=== PATIENT | male | born 1960 | race Caucasian/White ===

== ENCOUNTER 2020-03-20 04:25 | Emergency (ER) | payer MEDICARE, OTHER ==
[~2020-03-20] VITALS: Ht 172.7 cm; Wt 90.0 kg
--- OUTSIDE RECORDS SUMMARY | 2020-03-20 04:33 | XMS REPORT | Continuity of Care Document ---
Author Organization Unknown Address Unknown Phone Unavailable Allergies There is no data. Medications There is no data. Problems There is no data. Procedures There is no data. Results There is no data. Encounters ACCT No. Visit Date/Time Discharge Status Pt. Type Provider Facility Loc./Unit Complaint [id number] 03/20/2020 04:30:[address] Emergency REHAN BLANCO, FANI Yao [facility] FS CANCER LEFT EAR
--- NOTE | 2020-03-20 04:42 | ED EENT ---
History of Present Illness General Chief Complaint: Ear Problems Stated Complaint: CANCER LEFT EAR Source: patient, RN/MD, RN notes reviewed, old records Exam Limitations: no limitations History of Present Illness Date Seen by Provider: March 20, 2020 Time Seen by Provider: 04:30 Initial Comments This patient is a 59-year-old male with presents to the emergency department for left ear pain. Patient is a history of cancer in the left ear and is undergoing radiation therapy. Patient has a red swollen care that is oozing. Patient states has been doing this for some time since he started the radiation therapy. Underlying tissue appears to be concerning for possible cellulitis. Patient takes hydrocodone at home states increased pain and swelling. Last radiation treatment was just this day before today. We'll do medical evaluation treatment is needed Timing/Duration: gradual Location: ear (L) Associated Symptoms: ear drainage, facial pain/swelling Allergies and Home Medications Allergies Coded Allergies: No Known Drug Allergies (Unverified , 03/20/20) Patient Home Medication List Home Medication List Reviewed: Yes Review of Systems Review of Systems Constitutional: No no symptoms reported; see HPI; No chills, No diaphoresis, No dizziness, No fever, No malaise, No weakness, No weight gain, No weight loss, No other Eyes: Denies No Symptoms Reported, Denies See HPI, Denies Blindness, Denies Blurred Vision, Denies Drainage, Denies Decreased Acuity, Denies Foreign Body Sensation, Denies Inflammation, Denies Pain, Denies Photophobia, Denies Previous Injury, Denies Shadows, Denies Tunnel Vision, Denies Vision Changes, Denies Con tact Lenses, Denies Glasses, Denies Other Ears: Denies No Symptoms Reported; See HPI; Denies Dizziness, Denies Pain, Denies Tinnitus, Denies Bloody Discharge, Denies Clear Discharge; Serosanguinous Discharge; Denies Previous Injury, Denies Other Nose: denies no symptoms reported, denies see HPI, denies clots, denies congestion, denies epistaxis, denies pain, denies bloody discharge, denies clear discharge, denies purulent discharge, denies serosanguinous discharge, denies previous injury, denies other Mouth: denies no symptoms reported, denies see HPI, denies clots, denies loose teeth, denies pain, denies swelling, denies bloody discharge, denies clear discharge, denies purulent discharge, denies serosanguinous discharge, denies previous injury, denies other Throat: denies no symptoms reported, denies see HPI, denies pain, denies swelling, denies discharge, denies neck stiffness, denies hoarse, denies aphonia, denies muffled, denies painful swallowing, denies difficulty with fluids, denies previous injury, denies other Respiratory: No no symptoms reported, No see HPI, No cough, No dyspnea on exertion, No hemoptysis, No orthopnea, No phlegm, No short of breath, No stridor, No wheezing, No other Cardiovascular: No no symptoms reported, No see HPI, No chest pain, No edema, No Hx of Intervention, No palpitations, No syncope, No vascular heart diseas, No other Musculoskeletal: No no symptoms reported, No see HPI, No back pain, No gout, No joint pain, No joint swelling, No muscle pain, No muscle stiffness, No muscle cramps, No muscle twitching, No muscle weakness, No neck pain, No other Skin: see HPI, change in color, lesions All Other Systems Reviewed Negative Unless Noted: Yes Past Wsxqiek-Jguutx-Dgcpry Hx Patient Social History Recent Foreign Travel: No Contact w/Someone Who Travel: No Physical Exam Vital Signs Vital Signs - First Documented 03/20/20 04:50 Temp 36.7 Pulse 78 Resp 16 B/P (MAP) 159/88 (111) O2 Delivery Room Air Height, Weight, BMI Height: '" Weight: lbs. oz. kg; BMI Method: General Appearance: WD/WN, no apparent distress Ears: left ear erythema, left ear swelling, left ear tenderness, left ear other (squamous cell carcinoma Left Auricle Ear appears red and swollen concern for possible underlying cellulitis. With serosanguineous drainage from lesion.) Neck: non-tender, full range of motion, supple, normal inspection Cardiovascular: normal peripheral pulses, regular rate, rhythm, no edema, no gallop, no JVD, no murmur Respiratory: chest non-tender, lungs clear, normal breath sounds, no respiratory distress, no accessory muscle use Skin: normal color, warm/dry, other (as stated above on ENT exam) Progress/Results/Core Measures Results/Orders Lab Results Laboratory Tests Test 03/20/20 04:45 Range/Units White Blood Count 13.5 H 4.3-11.0 10^3/uL Red Blood Count 5.68 4.35-5.85 10^6/uL Hemoglobin 16.0 13.3-17.7 G/DL Hematocrit 48 40-54 % Mean Corpuscular Volume 84 80-99 FL Mean Corpuscular Hemoglobin 28 25-34 PG Mean Corpuscular Hemoglobin Concent 34 32-36 G/DL Red Cell Distribution Width 14.7 H 10.0-14.5 % Platelet Count 205 130-400 10^3/uL Mean Platelet Volume 9.7 7.4-10.4 FL Neutrophils (%) (Auto) 78 H 42-75 % Lymphocytes (%) (Auto) 8 L 12-44 % Monocytes (%) (Auto) 10 0-12 % Eosinophils (%) (Auto) 2 0-10 % Basophils (%) (Auto) 1 0-10 % Neutrophils # (Auto) 10.6 H 1.8-7.8 X 10^3 Lymphocytes # (Auto) 1.1 1.0-4.0 X 10^3 Monocytes # (Auto) 1.4 H 0.0-1.0 X 10^3 Eosinophils # (Auto) 0.3 0.0-0.3 10^3/uL Basophils # (Auto) 0.1 0.0-0.1 10^3/uL Neutrophils % (Manual) 72 % Lymphocytes % (Manual) 17 % Monocytes % (Manual) 9 % Eosinophils % (Manual) 2 % Basophils % (Manual) 0 % Band Neutrophils 0 % Sodium Level 138 135-145 MMOL/L Potassium Level 4.3 3.6-5.0 MMOL/L Chloride Level 102 98-107 MMOL/L Carbon Dioxide Level 23 21-32 MMOL/L Anion Gap 13 5-14 MMOL/L Blood Urea Nitrogen 24 H 7-18 MG/DL Creatinine 1.11 0.60-1.30 MG/DL Estimat Glomerular Filtration Rate > 60 BUN/Creatinine Ratio 22 Glucose Level 137 H 70-105 MG/DL Calcium Level 10.8 H 8.5-10.1 MG/DL Corrected Calcium 10.7 H 8.5-10.1 MG/DL Total Bilirubin 0.3 0.1-1.0 MG/DL Aspartate Amino Transf (AST/SGOT) 7 5-34 U/L Alanine Aminotransferase (ALT/SGPT) 16 0-55 U/L Alkaline Phosphatase 136 40-136 U/L Total Protein 7.2 6.4-8.2 GM/DL Albumin 4.1 3.2-4.5 GM/DL My Orders Orders - FANI VAN MD Cbc With Automated Diff (03/20/20 04:37) Comprehensive Metabolic Panel (03/20/20 04:37) Ed Iv/Invasive Line Start (03/20/20 04:37) Ondansetron Injection (Zofran Injectio (03/20/20 05:00) Ketorolac Injection (Toradol Injection) (03/20/20 05:00) Ns Iv 500 Ml (Sodium Chloride 0.9%) (03/20/20 04:48) Manual Differential (03/20/20 04:45) Medications Given in ED Current Medications Medications Dose Ordered Sig/Mariana Route Start Time Stop Time Status Last Admin Dose Admin Ketorolac Tromethamine 15 mg ONCE ONCE IV 03/20/20 05:00 03/20/20 05:01 DC 03/20/20 05:09 15 MG Ondansetron HCl 4 mg ONCE ONCE IVP 03/20/20 05:00 03/20/20 05:01 DC 03/20/20 05:09 4 MG Vital Signs/I&O 03/20/20 04:50 Temp 36.7 Pulse 78 Resp 16 B/P (MAP) 159/88 (111) O2 Delivery Room Air Progress Progress Note : Time: 05:32 Progress Note 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 Appears to have cellulitis to the year also. Keep pain. Patient is to continue his hydrocodone at home. We will give patient IV Rocephin in the emergency department and discharged patient home on doxycycline. Patient is to continue with all medications at home. Follow-up with PCP this morning for possible adjustments of his pain medications at home. Departure Impression Primary Impression: Cellulitis of external ear Additional Impressions: Squamous cell carcinoma of ear Radiation therapy complication Disposition: 01 HOME, SELF-CARE Condition: Stable Departure-Patient Inst. Referrals: SELF,JEANCARLOS BLANCO (PCP/Family) Primary Care Physician Patient Instructions: Squamous Cell Carcinoma (DC), Cellulitis and Erysipelas (Skin Infections) Add. Discharge Instructions: Take all medications as instructed. Use triple antibiotic or Neosporin as needed. Follow-up with your primary care physician today for any adjustments of her narcotic pain medication. Continue chemotherapy and radiation per oncology request. Discussed at length with them about cellulitis of the ear. All discharge instructions reviewed with patient and/or family. Voiced understanding. Scripts Mupirocin Calcium (Mupirocin) 15 Gm Cream..g. 15 GM TP BID for 7 Days, #1 TUBE 0 Refills Prov: FANI VAN MD 03/20/20 Doxycycline Hyclate (Doxycycline Hyclate) 100 Mg Tablet 100 MG PO BID for 10 Days, #20 TAB 0 Refills Prov: FANI VAN MD 03/20/20 FANI VAN MD March 20, 2020 04:41
[2020-03-20] MEDS ORDERED: NS IV 500 ML 500 ML IV STA (04:48)
[2020-03-20] MEDS ORDERED: ONDANSETRON 4 MG/2 ML (SDV) Z0FRAN IVP ONE (05:00)
[2020-03-20] MEDS ORDERED: KETOROLAC 60 MG/2 ML VIAL IV ONE (05:00)
[2020-03-20 05:02] LABS: HEMATOCRIT 48 % (40-54); MEAN CORPUSCULAR HEMOGLOBIN 28 PG (25-34); MEAN CORPUSCULAR HGB CONC 34 G/DL (32-36); MEAN CORPUSCULAR VOLUME 84 FL (80-99); MEAN PLATELET VOLUME 9.7 FL (7.4-10.4); PLATELET COUNT 205 10^3/uL (130-400); RED CELL DISTRIBUTION WIDTH 14.7 % (10.0-14.5); WHITE BLOOD COUNT 13.5 10^3/uL (4.3-11.0)
[2020-03-20 05:03] LABS: BASOPHILS # (AUTO) 0.1 10^3/uL (0.0-0.1); BASOPHILS % (AUTO) 1 % (0-10); EOSINOPHILS # (AUTO) 0.3 10^3/uL (0.0-0.3); EOSINOPHILS % (AUTO) 2 % (0-10); LYMPHOCYTES # (AUTO) 1.1 X 10^3 (1.0-4.0); LYMPHOCYTES % (AUTO) 8 % (12-44); MONOCYTES # (AUTO) 1.4 X 10^3 (0.0-1.0); MONOCYTES % (AUTO) 10 % (0-12); NEUTROPHILS # (AUTO) 10.6 X 10^3 (1.8-7.8); NEUTROPHILS % (AUTO) 78 % (42-75)
[2020-03-20 05:15] LABS: BAND NEUTROPHILS 0 %; BASOPHILS % (MANUAL) 0 %; EOSINOPHILS % (MANUAL) 2 %; LYMPHOCYTES % (MANUAL) 17 %; MONOCYTES % (MANUAL) 9 %; NEUTROPHILS % (MANUAL) 72 %
[2020-03-20 05:21] LABS: ALANINE AMINOTRANSFERASE 16 U/L (0-55); ALKALINE PHOSPHATASE 136 U/L (40-136); BILIRUBIN,TOTAL 0.3 MG/DL (0.1-1.0); BUN/CREATININE RATIO 22; CALCIUM 10.8 MG/DL (8.5-10.1); CARBON DIOXIDE 23 MMOL/L (21-32); CHLORIDE 102 MMOL/L (98-107); CREATININE SERUM 1.11 MG/DL (0.60-1.30); GFR ESTIMATED > 60; GLUCOSE 137 MG/DL (70-105); POTASSIUM 4.3 MMOL/L (3.6-5.0); SODIUM 138 MMOL/L (135-145); TOTAL PROTEIN 7.2 GM/DL (6.4-8.2)
--- NOTE | 2020-03-20 05:21 | NUR ---
PT. REPORTED HIS PAIN HAS IMPROVED BUT HIS HEAD IS STILL HURTING.
[2020-03-20 05:22] LABS: ALBUMIN 4.1 GM/DL (3.2-4.5)
[2020-03-20] MEDS ORDERED: morphine INJ 10 MG/ML 1ML (SYR OR VIAL) IVP STA (05:31)
[2020-03-20] MEDS ORDERED: DOXY100T2 PO (05:36)
[2020-03-20] MEDS ORDERED: MUPI15CR11 TP (05:36)
[2020-03-20 05:42] VITALS: BP 159/88
[2020-03-20] MEDS ORDERED: cefTRIAXone FOR IV USE 1,000 MG in WATER (STERILE) FOR INJECTION 10 ML IV ONE (05:45)
== END 2020-03-20 05:43 | disposition home or self-care (01) ==
LOC: ER FS 04:30
DX: C44.229 Squamous cell carcinoma of skin of left ear and external auricular canal (principal); C79.9 Secondary malignant neoplasm of unspecified site; H60.12 Cellulitis of left external ear; L59.8 Other specified disorders of the skin and subcutaneous tissue related to radiation
CPT/HCPCS: 36415; 80053; 85007; 85027

== ENCOUNTER → 2020-06-05 | Outpatient (CLI) | payer MEDICARE, MEDICAID ==
[~2020-06-05] MED LIST: DOXY100T2 PO; MUPI15CR11 TP
--- NOTE | 2020-06-05 16:00 | Diagnostic Imaging Report ---
PROCEDURE: CT head without contrast. TECHNIQUE: Multiple contiguous axial images were obtained through the brain without the use of intravenous contrast. Auto Exposure Controls were utilized during the CT exam to meet ALARA standards for radiation dose reduction. INDICATION: Swelling and redness to left ear as well as pain in the left temporal region. COMPARISON: No prior studies are available for comparison. FINDINGS: There is a soft tissue mass-like density in the region of the left external auditory canal and just cephalad in the left posterior temporal region. Ventricles and sulci are within normal limits. No sulcal effacement or midline shift is identified. No acute intra-axial or extra-axial hemorrhage is detected. Cisterns are patent. Visualized paranasal sinuses are clear. IMPRESSION: 1. No acute intracranial process is detected. 2. Soft tissue mass-like density in the left posterior temporal region as well as in the region of the left external auditory canal. Dictated by: Dictated on workstation # [id number]
== END ==
LOC: RAD FS 15:00
PROVIDERS: ATTEND Family Medicine
DX: C80.1 Malignant (primary) neoplasm, unspecified (principal)
CPT/HCPCS: 70450

== ENCOUNTER 2020-06-20 08:53 | Emergency (ER) | payer MEDICARE, MEDICAID ==
[~2020-06-20] VITALS: Ht 172 cm; Wt 90.0 kg
--- NOTE | 2020-06-20 08:58 | ED Chest Pain ---
General Chief Complaint: Chest Pain Stated Complaint: TROUBLE BREATHING Source: patient Exam Limitations: no limitations History of Present Illness Date Seen by Provider: Jun 20, 2020 Time Seen by Provider: 08:57 Initial Comments 59-year-old male presents with left-sided chest pain that started yesterday evening. Reports he's had pain throughout the night. These having a hard time catching his breath. That the pain will radiate across the back of his shoulder blades. He has some mild epigastric pain. Patient has known face and ear cancer and has received radiation. Patient reports he took a couple aspirin this morning about 3 hours prior to arrival. He has had some episodes of diaphoresis. He denies any nausea vomiting. He denies any fevers or cough. Allergies and Home Medications Allergies Coded Allergies: No Known Drug Allergies (Unverified , 03/20/20) Home Medications Doxycycline Hyclate 100 Mg Tablet, 100 MG PO BID Prescribed by: FANI VAN on 03/20/20 0536 Mupirocin Calcium 15 Gm Cream..g., 15 GM TP BID Prescribed by: FANI VAN on 03/20/20 0536 Patient Home Medication List Home Medication List Reviewed: Yes Review of Systems Review of Systems Constitutional: No chills; diaphoresis; No fever EENTM: See HPI Respiratory: Denies Cough; Shortness of Air; Denies Wheezing Cardiovascular: Chest Pain; Denies Irregular Heart Rate, Denies Lightheadedness, Denies Palpitations Gastrointestinal: Denies Abdominal Pain, Denies Constipated, Denies Diarrhea, Denies Nausea, Denies Vomiting Genitourinary: No Symptoms Reported Musculoskeletal: no symptoms reported Skin: see HPI Psychiatric/Neurological: No Symptoms Reported Endocrine: No Symptoms Reported Past Vtkqksm-Sryzhc-Pgvrag Hx Past Med/Social Hx: Reviewed Nursing Past Med/Soc Hx Patient Social History Recent Foreign Travel: No Contact w/Someone Who Travel: No Recent Hopitalizations: No Seasonal Allergies Seasonal Allergies: No Past Medical History Surgeries: Yes Gallbladder, Kidney Transplant Cardiac: No Neurological: No Genitourinary: Yes (KIDNEY TRANSPLANT) Renal Failure Musculoskeletal: No Endocrine: No HEENT: No Cancer: Yes (EAR) Melanoma Did You Recieve Any Treatments: Yes What Type of Treatment Did You: Radiation Psychosocial: No Integumentary: Yes Blood Disorders: No Physical Exam Vital Signs Vital Signs - First Documented 06/20/20 08:57 Temp 36.4 Pulse 87 Resp 22 B/P (MAP) 142/96 (111) Pulse Ox 96 O2 Delivery Room Air Capillary Refill : Height, Weight, BMI Height: '" Weight: lbs. oz. kg; 30.00 BMI Method: General Appearance: No Apparent Distress, WD/WN HEENT: Other (patient with significant skin cancer changes to his left ear and left neck) Neck: No Tender Midline Respiratory: Lungs Clear, Normal Breath Sounds Cardiovascular: Regular Rate, Rhythm, No Edema Gastrointestinal: Non Tender (minimal tenderness epigastric), Soft Extremity: Normal Capillary Refill, Normal Inspection Neurologic/Psychiatric: Alert, Oriented x3, Normal Mood/Affect, feeder loader II-XII Norm as Tested Skin: Other (changes consistent with reports of skin cancer throughout the whole left ear with some mild spots on the left neck and left face) Focused Exam Lactate Level 06/20/20 10:15: Lactic Acid Level 1.78 Lactic Acid Level Laboratory Tests Test 06/20/20 10:15 Lactic Acid Level 1.78 MMOL/L (0.50-2.00) Progress/Results/Core Measures Results/Orders Lab Results Laboratory Tests Test 06/20/20 09:10 06/20/20 10:15 Range/Units White Blood Count 31.3 *H 4.3-11.0 10^3/uL Red Blood Count 4.84 4.35-5.85 10^6/uL Hemoglobin 12.5 L 13.3-17.7 G/DL Hematocrit 40 40-54 % Mean Corpuscular Volume 82 80-99 FL Mean Corpuscular Hemoglobin 26 25-34 PG Mean Corpuscular Hemoglobin Concent 32 32-36 G/DL Red Cell Distribution Width 17.3 H 10.0-14.5 % Platelet Count 247 130-400 10^3/uL Mean Platelet Volume 10.2 7.4-10.4 FL Neutrophils (%) (Auto) 91 H 42-75 % Lymphocytes (%) (Auto) 3 L 12-44 % Monocytes (%) (Auto) 5 0-12 % Eosinophils (%) (Auto) 1 0-10 % Basophils (%) (Auto) 0 0-10 % Neutrophils # (Auto) 28.4 H 1.8-7.8 X 10^3 Lymphocytes # (Auto) 1.0 1.0-4.0 X 10^3 Monocytes # (Auto) 1.7 H 0.0-1.0 X 10^3 Eosinophils # (Auto) 0.2 0.0-0.3 10^3/uL Basophils # (Auto) 0.0 0.0-0.1 10^3/uL Neutrophils % (Manual) 75 % Lymphocytes % (Manual) 3 % Monocytes % (Manual) 6 % Eosinophils % (Manual) 1 % Band Neutrophils 15 % Anisocytosis SLIGHT Prothrombin Time 19.2 H 12.2-14.7 SEC INR Comment 1.6 H 0.8-1.4 Activated Partial Thromboplast Time 42 H 24-35 SEC D-Dimer 1.89 H 0.00-0.49 UG/ML Sodium Level 137 135-145 MMOL/L Potassium Level 4.7 3.6-5.0 MMOL/L Chloride Level 106 98-107 MMOL/L Carbon Dioxide Level 22 21-32 MMOL/L Anion Gap 9 5-14 MMOL/L Blood Urea Nitrogen 28 H 7-18 MG/DL Creatinine 1.14 0.60-1.30 MG/DL Estimat Glomerular Filtration Rate > 60 BUN/Creatinine Ratio 25 Glucose Level 172 H 70-105 MG/DL Calcium Level 12.1 H 8.5-10.1 MG/DL Corrected Calcium 12.8 H 8.5-10.1 MG/DL Magnesium Level 1.7 1.6-2.4 MG/DL Total Bilirubin 0.2 0.1-1.0 MG/DL Aspartate Amino Transf (AST/SGOT) 18 5-34 U/L Alanine Aminotransferase (ALT/SGPT) 39 0-55 U/L Alkaline Phosphatase 265 H 40-136 U/L Myoglobin 107.3 H 10.0-92.0 NG/ML Troponin I < 0.028 <0.028 NG/ML Total Protein 6.8 6.4-8.2 GM/DL Albumin 3.1 L 3.2-4.5 GM/DL Lipase 13 8-78 U/L Lactic Acid Level 1.78 0.50-2.00 MMOL/L My Orders Orders - FRAZIER,MIL L DO Cbc With Automated Diff (06/20/20 09:02) Magnesium (06/20/20 09:02) Chest 1 View, Ap/Pa Only (06/20/20 09:02) Ekg Tracing (06/20/20 09:02) Comprehensive Metabolic Panel (06/20/20 09:02) Myoglobin Serum (06/20/20 09:02) Protime With Inr (06/20/20 09:02) Partial Thromboplastin Time (06/20/20 09:02) Monitor-Rhythm Ecg Trace Only (06/20/20 09:02) Ed Iv/Invasive Line Start (06/20/20 09:02) Lipase (06/20/20 09:02) Fibrin Degradation Products (06/20/20 09:02) Troponin I (06/20/20 09:02) Aspirin Chewable Tablet (Baby Aspirin Ch (06/20/20 09:15) Manual Differential (06/20/20 09:10) Cefepime Injection (Maxipime Injection) (06/20/20 09:45) Lactic Acid Analyzer (06/20/20 09:34) Ct Angio Chest W (06/20/20 09:57) Iohexol Injection (Omnipaque 350 Mg/Ml 1 (06/20/20 10:15) Received Contrast (Hold Metformin- Contr (06/20/20 10:15) Sodium Chloride Flush (Catheter Flush Sy (06/20/20 10:15) Ns (Ivpb) (Sodium Chloride 0.9% Ivpb Bag (06/20/20 10:15) Vancomycin Injection (Vancomycin Injecti (06/20/20 11:30) Wound Culture (06/20/20 11:29) Ct Neck (Soft Tissue) W (06/20/20 11:54) Ed Iv/Invasive Line Start (06/20/20 11:54) Ns Iv 1000 Ml (Sodium Chloride 0.9%) (06/20/20 11:54) Iohexol Injection (Omnipaque 350 Mg/Ml 1 (06/20/20 12:15) Received Contrast (Hold Metformin- Contr (06/20/20 12:15) Ns (Ivpb) (Sodium Chloride 0.9% Ivpb Bag (06/20/20 12:15) Fentanyl Injection (Sublimaze Injection (06/20/20 12:10) Vancomycin Injection (Vancomycin Injecti (06/20/20 12:15) Morphine Injection (Morphine Injection (06/20/20 14:26) Medications Given in ED Current Medications Medications Dose Ordered Sig/Mariana Route Start Time Stop Time Status Last Admin Dose Admin Aspirin 324 mg ONCE ONCE PO 06/20/20 09:15 06/20/20 09:16 DC 06/20/20 09:16 324 MG Cefepime HCl 1000 mg/Sterile Water 10 ml @ 200 mls/hr ONCE ONCE IV 06/20/20 09:45 06/20/20 09:47 DC 06/20/20 10:12 200 MLS/HR Iohexol 50 ml ONCE ONCE IV 06/20/20 12:15 06/20/20 12:16 DC 06/20/20 12:52 50 ML Iohexol 75 ml ONCE ONCE IV 06/20/20 10:15 06/20/20 10:16 DC 06/20/20 10:29 77 ML Morphine Sulfate 10 mg STK-MED ONCE .ROUTE 06/20/20 14:26 06/20/20 14:31 DC 06/20/20 14:18 4 MG Sodium Chloride 10 ml NEEDED PRN IV 06/20/20 10:15 06/20/20 14:32 DC 06/20/20 10:29 10 ML Sodium Chloride 100 ml ONCE ONCE IV 06/20/20 10:15 06/20/20 10:16 DC 06/20/20 10:29 80 ML Vital Signs/I&O 06/20/20 06/20/20 06/20/20 08:57 09:28 14:20 Temp 36.4 Pulse 87 86 Resp 22 16 B/P (MAP) 142/96 (111) 159/92 Pulse Ox 96 95 O2 Delivery Room Air Room Air Room Air Progress Progress Note : Progress Note Patient's CT scans show significant cancer with metastatic disease. Patient had been seen [facility]. He was referred to [place]. Patient is wanting another opinion. I did call and they have an available appointment for Dr. Yanes July 01 at 1:30 PM. We'll have patient go by cancer center upon discharge to arrange for the appointment time. Patient is are on amoxicillin for his elevated white count. There is no noticeable or drainable abscess. Patient would prefer to be discharged then admitted at this time. He is stable upon discharge. He should return the ER as needed Initial ECG Impression Date: Jun 20, 2020 Initial ECG Impression Time: 08:58 Initial ECG Rhythm: Normal Sinus Initial ECG Intervals: Normal Initial ECG Impression: Normal Diagnostic Imaging Diagonstic Imaging: Xray Plain Films/CT/US/NM/MRI: chest Comments [facility] [place], [place] NAME: MARIA INES YOO REC#: [id number] PT STATUS: REG ER : 1960 PHYSICIAN: MIL FRAZIER DO ADMIT DATE: 06/20/20/ER Draft Date of Exam:06/20/20 CHEST 1 VIEW, AP/PA ONLY INDICATION: Upper mid chest pain. Time of exam 9:33 AM No prior studies are available for comparison. The heart size is normal. Interstitial markings are prominent throughout both lungs. The central vascularity is prominent. No parenchymal consolidation is identified. No pleural fluid or pneumothorax is detected. IMPRESSION: Central congestion and generalized interstitial changes, perhaps owing to interstitial edema or interstitial infiltrate. No parenchymal consolidation is detected Departure Impression Primary Impression: Chest wall pain Additional Impression: Metastatic cancer Qualified Codes: C79.9 - Secondary malignant neoplasm of unspecified site Disposition: 01 HOME, SELF-CARE Condition: Stable Departure-Patient Inst. Referrals: SELFJEANCARLOS MD (PCP/Family) Primary Care Physician Add. Discharge Instructions: Present the cancer center upon discharge to arrange for an outpatient evaluation All discharge instructions reviewed with patient and/or family. Voiced understanding. MIL FRAZIER DO Jun 20, 2020 08:57
[2020-06-20] MEDS ORDERED: ASPIRIN 81 MG CHEW (CHILDREN'S ASA) PO ONE (09:15)
[2020-06-20 09:28] LABS: BASOPHILS % (AUTO) 0 % (0-10); EOSINOPHILS # (AUTO) 0.2 10^3/uL (0.0-0.3); EOSINOPHILS % (AUTO) 1 % (0-10); HEMATOCRIT 40 % (40-54); HEMOGLOBIN 12.5 G/DL (13.3-17.7); LYMPHOCYTES % (AUTO) 3 % (12-44); MEAN CORPUSCULAR HEMOGLOBIN 26 PG (25-34); MEAN CORPUSCULAR HGB CONC 32 G/DL (32-36); MEAN CORPUSCULAR VOLUME 82 FL (80-99); MEAN PLATELET VOLUME 10.2 FL (7.4-10.4); MONOCYTES # (AUTO) 1.7 X 10^3 (0.0-1.0); MONOCYTES % (AUTO) 5 % (0-12); NEUTROPHILS # (AUTO) 28.4 X 10^3 (1.8-7.8); NEUTROPHILS % (AUTO) 91 % (42-75); PLATELET COUNT 247 10^3/uL (130-400); RED CELL DISTRIBUTION WIDTH 17.3 % (10.0-14.5)
[2020-06-20 09:30] LABS: WHITE BLOOD COUNT 31.3 10^3/uL (4.3-11.0)
[2020-06-20 09:39] LABS: INR 1.6 (0.8-1.4); PROTHROMBIN TIME PATIENT 19.2 SEC (12.2-14.7)
--- NOTE | 2020-06-20 09:39 | Diagnostic Imaging Report ---
INDICATION: Upper mid chest pain. Time of exam 9:33 AM No prior studies are available for comparison. The heart size is normal. Interstitial markings are prominent throughout both lungs. The central vascularity is prominent. No parenchymal consolidation is identified. No pleural fluid or pneumothorax is detected. IMPRESSION: Central congestion and generalized interstitial changes, perhaps owing to interstitial edema or interstitial infiltrate. No parenchymal consolidation is detected. Dictated by: Dictated on workstation # [id number]
[2020-06-20] MEDS ORDERED: CEFEPIME INJECTION 1,000 MG in WATER (STERILE) FOR INJECTION 10 ML IV ONE (09:45)
[2020-06-20 09:53] LABS: ALANINE AMINOTRANSFERASE 39 U/L (0-55); ALBUMIN 3.1 GM/DL (3.2-4.5); ALKALINE PHOSPHATASE 265 U/L (40-136); BILIRUBIN,TOTAL 0.2 MG/DL (0.1-1.0); BUN/CREATININE RATIO 25; CALCIUM 12.1 MG/DL (8.5-10.1); CARBON DIOXIDE 22 MMOL/L (21-32); CHLORIDE 106 MMOL/L (98-107); CREATININE SERUM 1.14 MG/DL (0.60-1.30); GFR ESTIMATED > 60; GLUCOSE 172 MG/DL (70-105); LIPASE 13 U/L (8-78); MAGNESIUM 1.7 MG/DL (1.6-2.4); POTASSIUM 4.7 MMOL/L (3.6-5.0); SODIUM 137 MMOL/L (135-145); TOTAL PROTEIN 6.8 GM/DL (6.4-8.2)
[2020-06-20 09:54] LABS: BAND NEUTROPHILS 15 %; EOSINOPHILS % (MANUAL) 1 %; LYMPHOCYTES % (MANUAL) 3 %; MONOCYTES % (MANUAL) 6 %; NEUTROPHILS % (MANUAL) 75 %
[2020-06-20 09:55] LABS: ANISOCYTOSIS SLIGHT
[2020-06-20] MEDS ORDERED: HOLD METFORMIN - RECEIVED CONTRAST 20 ML VIAL IV SCH ×2 (10:15→12:15)
[2020-06-20] MEDS ORDERED: NS 100 ML (IVPB) BAG IV ONE ×2 (10:15→12:15)
[2020-06-20] MEDS ORDERED: IOHEXOL 350 MG/ML 100 ML (OMNIPAQUE 350) VIAL IV ONE ×2 (10:15→12:15)
[2020-06-20] MEDS ORDERED: CATHETER FLUSH 10 ML SYR IV PRN (10:15)
--- NOTE | 2020-06-20 10:56 | Diagnostic Imaging Report ---
PROCEDURE: CT angiography of the chest with contrast. TECHNIQUE: Multiple contiguous axial images were obtained through the chest after uneventful bolus administration of intravenous contrast. 3D reconstructed CTA MIP acquisitions were also performed. Auto Exposure Controls were utilized during the CT exam to meet ALARA standards for radiation dose reduction. INDICATION: Shortness of breath There are no prior CTA chest examinations available for comparison. The plain film examination of the chest performed at 929H noted central pulmonary congestion. There is no defect within the pulmonary arteries to indicate a pulmonary embolus. The aorta is not abnormally dilated and there is no sign of a dissection. The heart size is within normal limits. Coronary calcifications are evident. There is a generalized prominence of interstitial densities throughout both lungs and there are faint alveolar/interstitial infiltrates throughout each lung as well. These findings may be secondary to pulmonary edema alone. The possibility that there is an element of pneumonia/atelectasis present should also be considered. There is no pleural effusion identified. There is no parenchymal lung mass noted either. There are a few borderline enlarged pretracheal and aorticopulmonary window nodes. These are nonspecific. The thyroid gland where visualized is unremarkable. The sections through the upper abdomen do show hepatosplenomegaly although near the liver, the spleen were imaged in their entirety. There is no acute abnormality of the upper abdomen. The bone windows do reveal multiple lytic lesions. Specifically, there are lytic lesions throughout the thoracic spine with T1 and T2 and T5, T7 and T12 most severely involved. Lytic defects within L1 are noted as well. There is also a lytic lesion involving the manubrium of the sternum on the left and there are several small lytic lesions throughout the ribs bilaterally. There is also slightly displaced fracture of the anterior aspect of the left 4th rib. This may be pathologic in nature. No other acute bony abnormality is appreciated. IMPRESSION: 1. There is a generalized prominence of the interstitial densities in both lungs as well as diffuse alveolar/interstitial pulmonary infiltrates bilaterally. These findings may be secondary to pulmonary edema alone. The possibility that there is an element of pneumonia/atelectasis should still be considered. 2. There is no pulmonary embolus identified nor is there any evidence for an aortic dissection. 3. There are multiple lytic skeletal metastases as described above. There also appears to be a slightly displaced pathologic fracture left 4th rib. 4. There is hepatosplenomegaly. 5. These results were discussed with Dr. Hugo Swain in the Emergency Room. Dictated by: Dictated on workstation # [id number]
--- NOTE | 2020-06-20 10:59 | NUR ---
REPORT GIVEN TO KRISTINA JOYA
[2020-06-20] MEDS ORDERED: VANCOMYCIN INJECTION 750 MG in NS (IVPB) 250 ML IV SCH (11:30)
[2020-06-20] MEDS ORDERED: NS IV 1000 ML 1,000 ML IV SCH (11:54)
[2020-06-20] MEDS ORDERED: fentaNYL INJECTION 100 MCG/2 ML AMP IVP STA (12:10)
[2020-06-20] MEDS ORDERED: VANCOMYCIN INJECTION 1,750 MG in NS IV 500 ML 500 ML IV NR (12:15)
--- NOTE | 2020-06-20 13:29 | Diagnostic Imaging Report ---
PROCEDURE: CT neck soft tissue with contrast. TECHNIQUE: Multiple contiguous axial images were obtained through the neck after the administration of contrast. Auto Exposure Controls were utilized during the CT exam to meet ALARA standards for radiation dose reduction. 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 Concern for abscess. COMPARISON: CT head on 06/05/2020.. Findings: A enhancing soft tissue mass is seen in the area of the left auricle measuring 4.9 x 4.2 cm and 5.9 cm craniocaudal. Areas of hypoattenuation are seen within this mass without discrete drainable fluid collection. Soft tissue mass extends along the course of the auriculotemporal nerve on the left (Image 38 series 2). This soft tissue mass also extends and opacifies the left external auditory canal and appears to involve the left middle ear cavity. Osseous destruction of the left mastoid air cells is noted. 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 The foramen ovale is not well evaluated on this exam due to slice thickness; however, there is suggestion of soft tissue fullness within the left foramen ovale. Numerous pathologically enlarged lymph nodes are seen in the left neck, the largest measuring 1.4 x 1.3 cm and the left level 2 station. Large lytic lesions are visualized at the T1 and T2 levels with smaller lytic lesions at C4 and C7. Lytic lesions are also seen in the posterior elements at C3 and C5 and involving the left aspect of the anterior arch of C1. A lytic lesion is also visualized in the left aspect of the frontal bone and in the occipital bone just right of midline. A lytic lesion is also seen in the left aspect of the sternum. Focal soft tissue fullness is seen in the subcutaneous soft tissues of the posterior neck at the midline at approximately the C1 level measuring 1.5 x 1.5 cm. The posterior nasopharynx and oropharynx demonstrate appropriate symmetry. There is no displacement of the parapharyngeal fat planes. There is no abnormal process evident within the prevertebral or retropharyngeal space. There is no evidence of abnormal thickening of the epiglottis or aryepiglottic folds. The vocal folds appear symmetric. The parotid, submandibular and thyroid gland are unremarkable. The vascular structures the neck demonstrate no evidence of high-grade stenosis on this nondedicated exam. The visualized intracranial contents demonstrate no evidence of pathologic intracranial enhancement. Visualized orbital contents are unremarkable. Diffuse tree-in-bud opacities are seen throughout the included lungs. Impression: 1. Large soft tissue mass involving the left auricle with extension into the left external auditory canal and left middle ear cavity. 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 Local osseous destruction of the left mastoid air cells is noted. 2. 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 Additional pathologically enlarged lymphadenopathy is seen in the left neck. 3. Soft tissue fullness within the superficial soft tissues of the posterior neck at midline at the C1 level. This may represent additional area of metastatic disease. 4. No drainable fluid collection is seen within the soft tissue mass of the left auricle. Dictated by: Dictated on workstation # [id number]
--- NOTE | 2020-06-20 14:18 | NUR ---
4 MG MORPHINE ADMINISTERED IV AT THIS TIME.
[2020-06-20 14:20] VITALS: BP 159/92
[2020-06-20] MEDS ORDERED: morphine INJ 10 MG/ML 1ML (SYR OR VIAL) ONE (14:26)
--- NOTE | 2020-06-23 07:53 | NUR ---
Pt's son called requesting copy of discharge paperwork as it got lost.
== END 2020-06-20 14:20 | disposition home or self-care (01) ==
LOC: EDUNIT# 08:53 → ER 08:55
DX: R07.89 Other chest pain (principal); C44.209 Unspecified malignant neoplasm of skin of left ear and external auricular canal; C79.89 Secondary malignant neoplasm of other specified sites; C80.1 Malignant (primary) neoplasm, unspecified; C79.2 Secondary malignant neoplasm of skin; Z94.0 Kidney transplant status
CPT/HCPCS: 36415; 70491; 71045; 71275; 80053; 83605; 83690; 83735; 83874; 84484; 85007; 85027; 85379; 85610; 85730; 93005; 93041